=== PATIENT | female | born 1965 | race Caucasian/White ===

== ENCOUNTER 2022-03-19 08:15 | Outpatient (CLI) | payer OTHER, SELFPAY | END 2022-03-19 08:16 | disposition home or self-care (01) | LOC: OP CLINIC 08:19 | PROVIDERS: PCP Emergency Medicine; Visit Provider Surgery | DX: Z12.11 Encounter for screening for malignant neoplasm of colon (principal); K63.5 Polyp of colon; K57.30 Diverticulosis of large intestine without perforation or abscess without bleeding | CPT/HCPCS: 45385; 88305; 99153; J1200; J2250; J3010 ==